=== PATIENT | female | born 1945 | race Caucasian/White ===

== ENCOUNTER 2016-10-02 20:07 | Emergency (ER) | payer MEDICARE, OTHER ==
[~2016-10-02] VITALS: Ht 167.6 cm; Wt 55.0 kg
[~2016-10-02 20:07] MED LIST: ASPI81 PO; BISOPRL/HCTZ; IBUP800T23 PO; MULT-65 PO; PRED20 PO; SIMV40TA OR; ZOVI800T13 PO
[2016-10-02 20:22] VITALS: BP 148/86; PULSE 87; RESP 18; TEMP 98.6; O2SAT 99
[2016-10-02] MEDS ORDERED: CALTTAB PO (21:24)
[2016-10-02] MEDS ORDERED: B12-1CHW CHEW (21:24)
[2016-10-02] MEDS ORDERED: LOSA25TA PO (21:24)
[2016-10-02] MEDS ORDERED: SIMV40TA PO (21:24)
[2016-10-02] MEDS ORDERED: MULTTAB67 PO (21:24)
--- NOTE | 2016-10-02 21:35 | PD ---
HPI Chief Complaint: Musculoskeletal Complaint Time Seen by Provider: 21:32 Travel History International Travel<30 days: No Contact w/Intl Traveler<30days: No Traveled to known affect area: No History of Present Illness HPI Patient comes in complaining of left leg pain been approximately 3 days ago. Patient is a sharp stabbing pain in her left posterior calf radiates proximally. Patient thought she may have pulled muscles she's been lifting luggage, as well as bringing groceries and doing her normal routine cleaning. Patient reports she had to lift more than she normally does secondary to not being able to do to recent medical issues. Patient states she recently traveled to [place] from [place] by car. Patient denies any chest pain , shortness of breath, trauma, numbness or tingling. Patient states that she tried using [id number] muscle rubs and taking Advil no improvement of her symptoms. Patient reports she's had sciatica in the past this does not feel quite the same. Pain is worse with standing or walking. PFSH Past Medical History High Cholesterol: Yes Diminished Hearing: No Hypertension: Yes ?: Not Social History Alcohol Use: Yes (SOCIAL) Tobacco Use: No Substance Use: No Allergies-Medications (Allergen,Severity, Reaction): Coded Allergies: No Known Allergies (Unverified , 10/02/16) Reported Meds & Prescriptions Reported Meds & Active Scripts Active Reported [id number] (Methylcobalamin) 1 Mg Chew 1 Mg CHEW DAILY Caltrate 600+D (Calcium Carbonate-Cholecalciferol) 600-800 Mg-Unit Tab 1 Tab PO BID Multiple Vitamin 1 Tab 1 Tab PO DAILY Losartan (Losartan Potassium) 25 Mg Tab 25 Mg PO BID Simvastatin 40 Mg Tab 40 Mg PO HS Review of Systems Except as stated in HPI: all other systems reviewed are Neg Physical Exam Narrative GENERAL: Well-developed, well nourished, in no acute distress, and non-ill appearing. SKIN: Warm and dry. HEAD: Atraumatic. Normocephalic. EYES: Pupils equal and round. EOMI. No scleral icterus. No injection or drainage. ENT: No nasal bleeding or discharge. Mucous membranes pink and moist. NECK: Trachea midline. Supple. No nuclear rigidity. CARDIOVASCULAR: Dorsal pulses 2+ intact bilaterally. Capillary refill less than 2 seconds. RESPIRATORY: No accessory muscle use. No respiratory distress. MUSCULOSKELETAL: No obvious deformities. No clubbing. No cyanosis. Trace pedal edema bilaterally. Full range of motion. Hip: FROM and equal BL with passive flexion, extension, Abduction, Adduction, and internal/external rotation. Pulses equal BL distal to injury. Capillary refill less than 2 seconds distal to injury and equal BL. FROM distal to injury and equal BL. Strength distal to injury equal BL. NV intact distal to injury and equal BL. Plantar flexion and dorsal flexion equal BL. Dorsal pulses equal BL. Sensation intact over first web space bilateral lower extremities. Positive Homans sign on the left. NEUROLOGICAL: Awake and alert. No obvious cranial nerve deficits. Motor grossly within normal limits. Normal speech. PSYCHIATRIC: Appropriate mood and affect; insight and judgment normal. Data Data Last Documented VS Vital Signs Date Time Temp Pulse Resp B/P Pulse Ox O2 Delivery O2 Flow Rate FiO2 10/02/16 20:22 98.6 87 18 148/86 99 Orders Us Leg Venous Doppler (10/02/16 ) MDM Medical Decision Making Medical Screen Exam Complete: Yes Emergency Medical Condition: Yes Differential Diagnosis DVT, muscle strain, sciatica, other Narrative Course Patient was seen and examed. Doppler study was ordered. Patient signed out Dr. Talamantes. Please see her documentation for final diagnosis and disposition. Baljit Temple Oct 02, 2016 21:35
--- NOTE | 2016-10-02 22:56 | RADHPO ---
EXAM DATE/TIME: 10/02/2016 22:25 [facility] COMPARISON: No previous studies available for comparison. INDICATIONS : Pain. MEDICAL HISTORY : Hypertension. Hypercholesterolemia. SURGICAL HISTORY : No recorded surgical history. ENCOUNTER: Initial ACUITY: 1 week PAIN SCORE: 9/10 LOCATION: Left leg. TECHNIQUE: Venous ultrasound of the leg was performed from the inguinal ligament to the proximal calf. Real-bob e, color Doppler and spectral tracing, compression and augmentation techniques were used. FINDINGS: There is normal compressibility of the deep venous system from the inguinal region to the proximal ca lf. No echogenic clot is seen in the lumen of the common femoral, femoral, popliteal, and posterior tibial veins. There is a normal response of the venous system to proximal and distal augmentation an d respiration. CONCLUSION: No DVT in the left leg. Yrn Pike MD on October 02, 2016 at 22:54 Board Certified Radiologist. This report was verified electronically.
--- NOTE | 2016-10-02 23:21 | PD ---
Physical Exam Date Seen by Provider: Oct 02, 2016 Time Seen by Provider: 23:17 Narrative accepted in transfer of care GENERAL: Well-developed alert female in no acute distress no respiratory distress SKIN: Warm and dry. HEAD: Normocephalic. EYES: No scleral icterus. No injection or drainage. NECK: Supple, trachea midline. No JVD or lymphadenopathy. CARDIOVASCULAR: Regular rate and rhythm without murmurs, gallops, or rubs. RESPIRATORY: Breath sounds equal bilaterally. No accessory muscle use. GASTROINTESTINAL: Abdomen soft, non-tender, nondistended. MUSCULOSKELETAL: No cyanosis, or edema. Motor strength 5 over 5 bilateral upper extremities and lower extremity; sensory exam intact; deep tendon reflexes 2+ and equal without clonus straight leg raising increases lower extremity pain with the left lower extremity. Dorsalis pedis pulse and posterior tibialis pulses 2+ to palpation bilaterally no edema of the lower extremities and no pedal edema. BACK: Nontender without obvious deformity. No CVA tenderness. Data Data Last Documented VS Vital Signs Date Time Temp Pulse Resp B/P Pulse Ox O2 Delivery O2 Flow Rate FiO2 10/02/16 20:22 98.6 87 18 148/86 99 Orders Us Leg Venous Doppler (10/02/16 ) Acetamin-Hydrocod 325-5 Mg ([place] 5-325 (10/02/16 23:30) Ketorolac Inj (Toradol Inj) (10/02/16 23:30) Prednisone (Deltasone) (10/02/16 23:30) MDM Medical Record Reviewed: Yes Supervised Visit with ANUSHA: Yes (I have seen the patient along with the physician production administrative assistant and agree with history exam physical findings and diagnostics.) Interpretation(s) US LLE: FINDINGS: There is normal compressibility of the deep venous system from the inguinal region to the proximal calf. No echogenic clot is seen in the lumen of the common femoral, femoral, popliteal, and posterior tibial veins. There is a normal response of the venous system to proximal and distal augmentation and respiration. CONCLUSION: No DVT in the left leg. Yrn Pike MD on October 02, 2016 at 22:54 Board Certified Radiologist. This report was verified electronically. Differential Diagnosis Left lower extremity sprain strain sciatica L5 radiculopathy HNP; no cauda equina or cord compression findings Narrative Course US negative for DVT by physical exam range of motion and hip flexion as well as straight leg raising exacerbates L5 distribution of left lower extremity symptoms. Patient administered Toradol IM and prednisone by mouth and Lortab 5 by mouth; patient is stable for outpatient management and will be given prescription for Medrol Dosepak, Robaxin, and Lortab 5/325. Diagnosis Primary Impression: Lumbar radiculopathy, acute Referrals: Primary Care Physician call for appointment Patient Instructions: Narcotic given in the ED, General Instructions Additional Instruction: Apply moist heat to affected area for as needed comfort intermittently Take medications as prescribed; do not use ibuprofen/Advil/Motrin or Naprosyn/ naproxen/Aleve while taking steroid taper Use narcotics with caution as may impair judgment decreased reaction time increased risk for fall and cause constipation Use muscle relaxant with caution this may increase risk for fall or delay reaction time Follow-up with primary care physician call office for appointment Return to the emergency for free concerns or change in condition Med/Other Pt SpecificInfo: Prescription(s) given Scripts Ondansetron Odt (Zofran Odt)4 Mg Tab4 Mg SL Q6HR PRN (Nausea/Vomiting) #10 TAB Ref 0 Prov:Ashley Talamantes MD 10/02/16 Methylprednisolone Dosepak (Medrol Dosepak)4 Mg Dspk4 Mg PO DIRECTED #1 DSPK Ref 0 Per Pharmacist direction Prov:Ashley Talamantes MD 10/02/16 Methocarbamol (Robaxin)750 Mg Tab0.5-1 Mg PO Q4H #7 TAB Ref 0 Prov:Ashley Talamantes MD 10/02/16 Hydrocodone-Acetaminophen (Lortab)5-325 Mg Tab0.5-1 Tab PO Q6H PRN (PAIN) #12 TAB Ref 0 Prov:Ashley Talamantes MD 10/02/16 Disposition: 01 DISCHARGE HOME Condition: Stable Ashley Talamantes MD Oct 02, 2016 23:20
[2016-10-02] MEDS ORDERED: ROBA750T PO (23:24)
[2016-10-02] MEDS ORDERED: HYDR-3533 PO (23:24)
[2016-10-02] MEDS ORDERED: MEDR4PAK PO (23:24)
[2016-10-02] MEDS ORDERED: ZOFR4TAB3 SL (23:28)
[2016-10-02] MEDS ORDERED: predniSONE 20 MG TAB PO ONE (23:30)
[2016-10-02] MEDS ORDERED: KETOROLAC TROMETHAMINE 60 MG/2 ML (IM) VIAL IM ONE (23:30)
[2016-10-02] MEDS ORDERED: ACETAMINOPHEN/HYDROcodone 325 MG/5 MG TAB PO ONE (23:30)
[2016-10-03 00:33] VITALS: RESP 18
== END 2016-10-03 00:30 | disposition home or self-care (01) ==
LOC: PHED 20:07 → PHEFT 10-03 00:30
DX: M54.16 Radiculopathy, lumbar region (principal); I10 Essential (primary) hypertension
CPT/HCPCS: 93971; 96372; 99283; J1885; J7512